=== PATIENT | female | born 1990 | race Caucasian/White ===

== ENCOUNTER 2016-05-24 18:30 | Emergency (ER) | payer SELFPAY ==
[~2016-05-24] VITALS: Ht 160 cm; Wt 66.8 kg
[~2016-05-24 18:30] MED LIST: NORCO 325 MG-51 TAB PO; PRENATAL1 TA1 PO
[2016-05-24 18:41] VITALS: TEMP 98.2
[2016-05-24] MEDS ORDERED: NUVARING VAG RING VG (18:45)
[2016-05-24] MEDS ORDERED: DOXYCYCLINE HY100 MG PO (20:04)
[2016-05-24 20:40] VITALS: BP 122/55; PULSE 66
== END 2016-05-24 20:40 | disposition home or self-care (01) ==
LOC: COL.ER 18:30
DX: S61.212A Laceration without foreign body of right middle finger without damage to nail, initial encounter (principal); W45.8XXA Other foreign body or object entering through skin, initial encounter; Z23 Encounter for immunization

== ENCOUNTER 2021-07-05 09:16 | Outpatient (CLI) | payer OTHER ==
[2021-07-05] VITALS (9 sets, daily range): BP systolic 127–137; BP diastolic 56–90; PULSE 59–81; TEMP 98.3
[~2021-07-05] VITALS: Ht 160 cm; Wt 99.5 kg
[~2021-07-05 09:16] MED LIST changes: +DOXYCYCLINE HY100 MG PO; +NUVARING VAG RING VG
--- NOTE | 2021-07-05 09:45 | NUR ---
924- Pt arrives on unit ambulatory with complaints of a headache since 0300 this morning that has not improved after medication. Pt into bathroom, provides urine sample. 927- Pt into bed, EFM and TOCO on and tracing. O2 sat monitor on and tracing maternal HR. Pt states she has history of migraines but this is the first on this . She took 1000mg Tylenol and 60mg Sudafed at 0300 but had no relief, took 500mg more of Tylenol at 0700 with still no improvement. Rates pain 6/10 while lying down, states it is worse when standing. Complains of being slightly nauseous but has not ate or drank today. VSS.
[2021-07-05] MEDS ORDERED: NATURAL IRON65 MG (10:03)
[2021-07-05] MEDS ORDERED: PRENATAL TABLET PO (10:03)
[2021-07-05] MEDS ORDERED: TYLENOL 500MG500 MG PO (10:14)
--- NOTE | 2021-07-05 10:15 | NUR ---
1000- Assessments completed. Pt states she has been seeing floaters throughout her . She had multiple episodes of being dizzy yesterday but no falls. Her headache is all in her eyes.
[2021-07-05] MEDS ORDERED: SUDAFED30 MG PO (10:16)
[2021-07-05 10:54] LABS: BASO % 0.4 % (0.0-2.0); EOS # 0.1 K/mm3 (0.0-0.7); EOS % 1.2 % (0.0-4.0); GRAN # 5.5 K/mm3 (1.4-6.5); GRAN % 68.5 % (42.2-75.2); HEMOGLOBIN 11.2 g/dl (12.5-16.0); LYMPH # 1.8 K/mm3 (1.2-3.4); LYMPH % 21.7 % (20.0-51.0); MEAN CELL VOLUME 88 fl (80.0-100.0); MEAN CORPUSCULAR HEMOGLOBIN 29 pg (27-31); MEAN CORPUSCULAR HGB CONC 33 g/dl (33.0-37.0); MEAN PLATELET VOLUME 12.3 fl (7.4-10.4); MONO # 0.6 K/mm3 (0.1-0.6); MONO % 7.3 % (1.7-9.3); PLATELET COUNT 129 K/mm3 (130-400); REDCELL DISTRIBUTION WIDTH-CV 17.5 % (11.5-14.5)
[2021-07-05 11:00] LABS: HEMATOCRIT 34.2 % (37.0-47.0)
[2021-07-05 11:05] LABS: COLLECTION METHOD CLEAN CATCH
[2021-07-05 11:12] LABS: ALBUMIN 2.6 gm/dL (3.5-5.0); ALKALINE PHOSPHATASE 144 U/L (40-150); ANION GAP 9 mmol/L (7-16); AST,SGOT 10 U/L (5-34); BILIRUBIN,TOTAL 0.3 mg/dL (0.2-1.2); BLOOD UREA NITROGEN 6 mg/dL (7-19); CALCIUM 8.4 mg/dL (8.4-10.2); CARBON DIOXIDE 20 mmol/L (22-29); CHLORIDE 109 mmol/L (98-107); CREATININE, serum 0.69 mg/dL (0.57-1.11); GLUCOSE 78 mg/dL (70-99); POTASSIUM 3.8 mmol/L (3.5-4.5); SODIUM 138 mmol/L (136-145); TOTAL PROTEIN 5.5 gm/dL (6.2-8.1)
[2021-07-05 11:16] LABS: ALANINE AMINOTRANSFERASE < 6 U/L (0-55)
[2021-07-05 11:27] LABS: MUCOUS Present (NOT PRESENT); PH 5 (5-8); SQUAMOUS EPITHELIAL 0-2 /hpf (0-10); URINE APPEARANCE Hazy (CLEAR/HAZY); URINE BACTERIA Rare /hpf (NONE SEEN); URINE BILIRUBIN Negative (NEGATIVE); URINE BLOOD Negative (NEGATIVE); URINE COLOR Yellow (YELLOW); URINE GLUCOSE Negative (NEGATIVE); URINE KETONE Negative (NEGATIVE); URINE LEUKOCYTE ESTERASE Negative (NEGATIVE); URINE NITRATE Negative (NEGATIVE); URINE PROTEIN(semi-quant) Negative (NEGATIVE); URINE RBC 0-2 /hpf (0-2); URINE UROBILINOGEN Negative (NEGATIVE)
--- NOTE | 2021-07-05 11:38 | NUR ---
1138- EFM and TOCO off, Pt up to void. 1200- MD on unit, Lab results relayed. Pt gives verbal orders. 1220- Discharge paperwork given and explained. Questions answered. Pt ambulates off unit in stable condition.
== END 2021-07-05 12:20 | disposition home or self-care (01) ==
LOC: LDRO 09:16 → LDR 09:20 → LDRO 12:20
PROVIDERS: Obstetrics & Gynecology
DX: Z34.93 Encounter for supervision of normal pregnancy, unspecified, third trimester (principal); Z3A.39 39 weeks gestation of pregnancy
CPT/HCPCS: OP

== ENCOUNTER 2021-07-13 12:52 | Inpatient (IN) | payer OTHER ==
[~2021-07-13] VITALS: Ht 160 cm; Wt 102.6 kg
[~2021-07-13 12:52] MED LIST changes: +NATURAL IRON65 MG; +PRENATAL TABLET PO; +SUDAFED30 MG PO; +TYLENOL 500MG500 MG PO
[2021-07-15] VITALS (63 sets, daily range): BP systolic 105–160; BP diastolic 55–96; PULSE 50–121; TEMP 97.8–98.4
--- NOTE | 2021-07-15 06:30 | NUR ---
350212.3, G3L1 arrives on unit for scheduled IOL. Ambulatory to LDR4 with spouse. Oriented to room and plan of care. Reports normal movement. Denies any LOF, VB, or contractions. Changes into clean gown. 0637EFM explained and placed. Tracing well. VS obtained. 0650IV to right hand. LR bolus infusing. Consent forms explained and signed. Assessment completed. 0710SVE /3. FHR baseline 160-170's. Moderate variability, 0720Dr. Dominique updated on pt. See physician notification. 0722Pitocin started at 2mu per orders. Plan of care discussed. Questions invited and answered. Patient resting with call light within reach.
[2021-07-15 07:08] LABS: BASO % 0.3 % (0.0-2.0); EOS # 0.1 K/mm3 (0.0-0.7); GRAN # 5.4 K/mm3 (1.4-6.5); GRAN % 67.9 % (42.2-75.2); HEMOGLOBIN 10.9 g/dl (12.5-16.0); LYMPH # 1.8 K/mm3 (1.2-3.4); LYMPH % 23.3 % (20.0-51.0); MEAN CELL VOLUME 88 fl (80.0-100.0); MEAN CORPUSCULAR HEMOGLOBIN 28 pg (27-31); MEAN CORPUSCULAR HGB CONC 32 g/dl (33.0-37.0); MEAN PLATELET VOLUME 12.9 fl (7.4-10.4); MONO # 0.5 K/mm3 (0.1-0.6); MONO % 6.7 % (1.7-9.3); PLATELET COUNT 126 K/mm3 (130-400); RED BLOOD COUNT 3.85 M/mm3 (4.10-5.30); REDCELL DISTRIBUTION WIDTH-CV 16.6 % (11.5-14.5)
[2021-07-15 07:12] LABS: HEMATOCRIT 33.8 % (37.0-47.0)
--- NOTE | 2021-07-15 09:45 | NUR ---
0945Contractions palpate moderate every 3-4min. [place] adjusted.
--- NOTE | 2021-07-15 11:00 | NUR ---
1100Patient up to bathroom. 1105Patient requesting epidural. Karen Bacon TRUCK LOADER notified. LR bolus infusing. 1115FHR tracing intermittently due to maternal position. RN adjusting EFM.
--- NOTE | 2021-07-15 11:40 | NUR ---
1140T. Jordi KEBEDE at bedside for epidural placement. FHR tracing intermittently due to maternal position and habitus. RN remains at bedside adj efm. 1150Pitocin paused. 1151Epidural placed and test dose at this time by Karen Bacon CRNA. See anesthesia record. 1153EFM adjusted and tracing. Pitocin resumed at 14mu. Patient wedge left. Plan of care and safety precautions reviewed with patient and family who verbalize understanding. Moderate amount of clear amniotic fluid noted to pads. Alix care provied, pads changed. 1230Dr. Fox to bedside. SVE per provider /-2. Catheter placed. Patient right lateral with LL in stirrups. Plan of care reviewed. Pitocin to 16mu per Dr. Fox orders.
--- NOTE | 2021-07-15 15:45 | NUR ---
1545FHR decels noted. Ctx tracing intermittently. Difficult to determine FHR decel onset. RN at bedside adjusting EFM.
--- NOTE | 2021-07-15 17:30 | NUR ---
1730Intermittent early and late decels. Patient repositioned high right lateral with peanut ball.
--- NOTE | 2021-07-15 20:15 | NUR ---
2015- FHR LATE DECELERATION DOWN INTO THE 90S. THIS RN TO BEDSIDE TO REPOSITION PATIENT TO LEFT LATERAL. 2016- AFTER ADJUSTING MONITORS FHR TRACING IN TON 135-140 RANGE. THIS RN REMAINS AT BEDSIDE TO SEE HOW FHR DOES WITH NEXT CONTRACTIONS. 2019- LATE DECLERATION NOTED DOWN INTO THE 95 RANGE. THIS RN CHECKED PATIENT. SVE ANTERIOR LIP. DISCUSSED WITH PATIENT ABOUT UPDATING PROVIDER. 2029- Shonna KELLEY, RN TO BEDSIDE FOR SVE VERIFICATION. ANTERIOR LIP. 2037- PROVIDER UPDATED, SEE PHYSICIAN NOTIFCATION.
--- NOTE | 2021-07-15 20:50 | NUR ---
2049- DR. MERRILL ON UNIT REVIEWING STRIP AND PRENTALS. 2054- PROVIDER AND THIS RN TO BEDSIDE FOR SVE EVAL. PATIENT COMPLETE. 2099- PATIENT PUKING. 2104- PATIENT DOES FIRST PRACTICE PUSH WITH PROVIDER. PATIENT PUSHES 1 MORE TIME WITH PROVIDER BEFORE HE STEPS OUT TO TAKE A PHONE CALL. THIS RN CONTINUES TO PUSH WITH PATIENT. 2109- MEDINA REMOVED AT THIS TIME WITH 100 URINE OUTPUT NOTED. 2127- PROVIDER BACK IN ROOM TO CHECK ON PROGRESS. PATIENT PUSHES WITH 2 CONTRACTIONS BEFORE PROVIDER NOTES ITS TIME TO DELIVER AND GET ROOM READY. 2131- PATIENT AND ROOM PREPPED FOR DELIVERY. NURSERY CALLED IN FOR DELIVERY. 2135- OF VIABLE FEMALE INFANT. PLACED TO MOTHERS ABDOMEN WHERE NURSERY NURSE ASSUMES CARE. DELAYED CORD CLAMPING AND CUTTING BY PROVIDER. PITOCIN TURNED OFF AT THIS TIME PER PROTOCOL. 2142- OF PLACENTA. TRAILING MEMBRANES NOTED BY PROVIDER. 2143- ALL OF PLACENTA AND ANY TRAILING MEMBRANES DELIVERED AT THIS TIME. PITOCIN STARTED PER PROTOCOL AT 333ML/HR. FUNDUS MASSAGED TO FIRM BY PROVIDER. 2ND DEGREE TEAR AND ELSA-URETHERAL TEARS NOTED AND REPAIRED BY PROVIDER. PROVIDER NOTED 200 EBL. 220- VITALS STABLE, FUNDUS FIRM. PATIENT AND ROOM CLEANED UP AND PUT BACK TOGETHER. NEW CHUX, PERIPAD AND ICEPACK TO PERINEUM. RECOVERY STARTED.
[2021-07-16] VITALS: BP 125/62; PULSE 63
[2021-07-16 01:15] VITALS: BP 113/66; PULSE 67; TEMP 97.6
[2021-07-16 05:00] VITALS: BP 106/51; PULSE 58; TEMP 98.4
[2021-07-16 08:11] VITALS: BP 118/104; PULSE 64; TEMP 97.7
[2021-07-16] MEDS ORDERED: IBU600 MG PO (08:18)
--- NOTE | 2021-07-16 09:10 | NUR ---
Initial visit; Parents thanked Vocational Placement Specialist for offering congratulations and God's blessings for the of their daughter. Chaplain gironked family for choosing [place].
[2021-07-16 13:15] VITALS: BP 116/59; PULSE 67; TEMP 98.3
--- NOTE | 2021-07-16 18:50 | NUR ---
REPORT GIVEN, PER DAY MYCHAL BAIG OT GIVEN AT SCHEDULED TIME D/T PT SLEEPING.
--- NOTE | 2021-07-16 20:00 | NUR ---
PT REQUESTED STOOL SOFTENER, PER PT, PT WAS ASLEEP EARLIER THIS AFTERNOON AND STATED 'SHE NEEDED THE REST'
--- NOTE | 2021-07-16 20:09 | NUR ---
PT STATES SHE HAS BEEN 'TOUGHING IT OUT' FOR PAIN, AGREED TO TRIAL SCHEDULED TYLENOL AND MOTRIN AND ICE PACKS, AND REVISIT OTHER PAIN MANAGEMENT METHODS.
[2021-07-16 20:24] VITALS: BP 126/71; PULSE 80; TEMP 98
--- NOTE | 2021-07-17 03:40 | NUR ---
PT C/O FEELING HER PELVIS FEELS HEAVY AND DISCOMFORT D/T HEMORROIDS, ADMINISTERED TUCKS PADS AND PROVIDED EDUCATION, SUGGESTED PT TO DISCUSS WITH OB IN AM DURING ROUNDS PRIOR TO D/C AND THIS NURSE WILL PASS ON TO DAY SHIFT TO NOTIFY OB WELL TO BE ADDRESSED.
[2021-07-17 09:09] VITALS: BP 130/64; PULSE 72; TEMP 97.7
== END 2021-07-17 11:50 | disposition home or self-care (01) | DRG 807 ==
LOC: LDR 07-14 15:29 → OB 07-15 06:24 → LDR 07-15 06:24 → OB 07-16 01:00
PROVIDERS: ADMIT Obstetrics & Gynecology
PROC: 10E0XZZ Delivery of Products of Conception, External Approach (ICD-10-PCS; principal; 2021-07-15)
PROC: 0KQM0ZZ Repair Perineum Muscle, Open Approach (ICD-10-PCS; 2021-07-15)
PROC: 0UQMXZZ Repair Vulva, External Approach (ICD-10-PCS; 2021-07-15)
PROC: 3E033VJ Introduction of Other Hormone into Peripheral Vein, Percutaneous Approach (ICD-10-PCS; 2021-07-15)
PROC: 10907ZC Drainage of Amniotic Fluid, Therapeutic from Products of Conception, Via Natural or Artificial Opening (ICD-10-PCS; 2021-07-15)
DX: O48.0 Post-term pregnancy (principal); Z37.0 Single live birth; O99.02 Anemia complicating childbirth; D64.9 Anemia, unspecified; O99.344 Other mental disorders complicating childbirth; F32.A Depression, unspecified; F41.9 Anxiety disorder, unspecified; O70.1 Second degree perineal laceration during delivery; O71.82 Other specified trauma to perineum and vulva; Z3A.40 40 weeks gestation of pregnancy; Z86.16 Personal history of COVID-19
CPT/HCPCS: J2405; J2590; J7120

== ENCOUNTER 2021-07-22 07:40 | Observation (INO) | payer OTHER ==
[2021-07-22] VITALS (10 sets, daily range): BP systolic 135–177; BP diastolic 69–89; PULSE 42–62; TEMP 98.1–99
[~2021-07-22] VITALS: Ht 162.6 cm; Wt 87.2 kg
[~2021-07-22 07:40] MED LIST changes: +IBU600 MG PO
[2021-07-22 08:17] LABS: COLLECTION METHOD CLEAN CATCH
[2021-07-22 08:21] LABS: BASO % 0.3 % (0.0-2.0); EOS # 0.1 K/mm3 (0.0-0.7); EOS % 1.2 % (0.0-4.0); GRAN # 6.7 K/mm3 (1.4-6.5); HEMOGLOBIN 10.6 g/dl (12.5-16.0); LYMPH # 1.5 K/mm3 (1.2-3.4); LYMPH % 16.8 % (20.0-51.0); MEAN CELL VOLUME 92 fl (80.0-100.0); MEAN CORPUSCULAR HEMOGLOBIN 28 pg (27-31); MEAN CORPUSCULAR HGB CONC 31 g/dl (33.0-37.0); MONO # 0.5 K/mm3 (0.1-0.6); MONO % 5.8 % (1.7-9.3); PLATELET COUNT 229 K/mm3 (130-400); RED BLOOD COUNT 3.79 M/mm3 (4.10-5.30); REDCELL DISTRIBUTION WIDTH-CV 16.1 % (11.5-14.5)
[2021-07-22 08:26] LABS: HEMATOCRIT 34.7 % (37.0-47.0)
[2021-07-22 08:45] LABS: PH 6 (5-8); SQUAMOUS EPITHELIAL 0-2 /hpf (0-10); URINE APPEARANCE Clear (CLEAR/HAZY); URINE BACTERIA None Seen /hpf (NONE SEEN); URINE BILIRUBIN Negative (NEGATIVE); URINE BLOOD 3+ (NEGATIVE); URINE COLOR Straw (YELLOW); URINE GLUCOSE Negative (NEGATIVE); URINE KETONE Negative (NEGATIVE); URINE LEUKOCYTE ESTERASE 3+ (NEGATIVE); URINE NITRATE Negative (NEGATIVE); URINE PROTEIN(semi-quant) Negative (NEGATIVE); URINE RBC 0-2 /hpf (0-2); URINE UROBILINOGEN Negative (NEGATIVE)
[2021-07-22 09:16] LABS: ALANINE AMINOTRANSFERASE 33 U/L (0-55); ALBUMIN 2.9 gm/dL (3.5-5.0); ALKALINE PHOSPHATASE 162 U/L (40-150); ANION GAP 8 mmol/L (7-16); AST,SGOT 33 U/L (5-34); BILIRUBIN,TOTAL 0.3 mg/dL (0.2-1.2); BLOOD UREA NITROGEN 9 mg/dL (7-19); CALCIUM 8.3 mg/dL (8.4-10.2); CARBON DIOXIDE 23 mmol/L (22-29); CHLORIDE 111 mmol/L (98-107); CREATININE, serum 0.74 mg/dL (0.57-1.11); GLUCOSE 80 mg/dL (70-99); LIPASE 13 U/L (8-78); POTASSIUM 4.1 mmol/L (3.5-4.5); SODIUM 142 mmol/L (136-145)
[2021-07-22 09:31] LABS: TROPONIN-I < 0.010 ng/mL (0.00-0.033)
--- NOTE | 2021-07-22 17:13 | NUR ---
PT TO FLOOR FROM ED. DR SIMEON IN TO SEE PT. PLAN ON SURGERY. IC GREEN GIVEN PER ORDERS. PT IS PUMP AND DUMP BREAST MILK AFTER IC GREEN GIVEN. PT TO SURGERY AT THIS TIME WITH CONSENT SIGNED ON CHART.
[2021-07-23] VITALS: BP 131/72; PULSE 52; TEMP 98.2
--- NOTE | 2021-07-23 00:40 | NUR ---
pt returned from PACU requiring 3L O2 per NC, baseline RA, per report from MYCHAL Webster, O2 sats dropped to 89-90 after IV pain meds given post op. pt awake and alert, IVF infusing per PIV in RAC @75cc/hr. pt asking for ice chips and water, no nausea reported @this time. pt has bandaids x4 to lower abdomen. CDI.
[2021-07-23 04:23] VITALS: BP 138/67; PULSE 48; TEMP 97.9
--- NOTE | 2021-07-23 05:52 | NUR ---
PT weaned to RA last noc, has been up ambulating in wass[place], rec'd oxycodone x2, last @2346, order rec'd this am for ibuprofen per pt's request, would like to avoid narcotics if possible d/t currently . planning to pump and dump until 24 hrs after last oxycodone. discussed alternating ibuprofen with Tylenol, so taking something q3hrs, pt agreed to try this. tolerating po without N/V, IV to INT last noc after surgery. plans to order low fat breakfast this am, VSS, BP has been WNL. bandaids to abdomen remain CDI. pt's mom @ bedside.
[2021-07-23 06:51] LABS: ALBUMIN 2.9 gm/dL (3.5-5.0); BILIRUBIN,TOTAL 0.3 mg/dL (0.2-1.2); CALCIUM 7.8 mg/dL (8.4-10.2); CREATININE, serum 0.73 mg/dL (0.57-1.11); POTASSIUM 3.8 mmol/L (3.5-4.5); TOTAL PROTEIN 5.6 gm/dL (6.2-8.1)
--- NOTE | 2021-07-23 07:30 | NUR ---
Pt doing well this morning. She is rating her pain 5/10, stating it is not too bad, but hurts when she gets up. Pt has been alternating ibuprofen and tylenol. Tylenol given at this time. Pt just received her breakfast. Her mother is in with her and has stayed the night. Pt is up independently to the restroom, reports voiding without difficulty. Started to discuss post op discharge instructions with pt as far as incisional care and activity. Pt denies any other needs, will continue to monitor
[2021-07-23 08:00] VITALS: BP 133/85; PULSE 55; TEMP 97.8
--- NOTE | 2021-07-23 09:32 | NUR ---
Pt resting with eyes closed, even non labored breathing
[2021-07-23 11:33] VITALS: BP 145/84; PULSE 65; TEMP 98.6
--- NOTE | 2021-07-23 13:50 | NUR ---
skidway worker met with patient to complete intake and discuss discharge plan. Patient's Morgan ([phone]), mother and sister also present in the room. Patient recently delivered her first baby. Baby is here with the patient. Patient lives at home with her and child in [place]. PCP is Minerva Maciel and she utilizes [facility] for perscription needs. Patient is independent with her ADL's and does not utilize any DME or oxygen at home. Patient is planning on returning home with no concerns. Discharge plan: Home with family
[2021-07-23] MEDS ORDERED: ROXICODONE 55 MG/TAB PO (15:23)
[2021-07-23 16:29] VITALS: BP 147/79; PULSE 57; TEMP 98.8
--- NOTE | 2021-07-23 17:00 | NUR ---
Reviewed discharge instructions with pt to include prescription and follow up appontment. Pt verbalized understanding. INT removed from right AC. Instructed pt to notify nursing when she is dressed and ready to go.
== END 2021-07-23 17:14 | disposition home or self-care (01) ==
LOC: COL.ER 07:40 → SURG 11:34
PROVIDERS: Student in an Organized Health Care Education/Training Program; ADMIT Surgery
DX: K81.2 Acute cholecystitis with chronic cholecystitis (principal); Z87.891 Personal history of nicotine dependence
CPT/HCPCS: G0378; J0696; J1100; J1170; J1200; J1885; J2175; J2270; J2405; J2704; J7120